=== PATIENT | male | born 1965 | race Caucasian/White ===

== ENCOUNTER → 2017-08-11 06:43 | Outpatient (CLI) | payer MEDICARE, SELFPAY ==
--- NOTE | 2017-08-11 06:47 | NM_ITS ---
CARDIOLITE SPECT MYOCARDIAL PERFUSION SCAN, REST AND STRESS: EXERCISE STRESS [facility] REVIEW QGS EF AND WALL MOTION EVALUATION: QPS - PERFUSION EVALUATION HISTORY: CAD, DM, Tobacco use DOSE: 10.31 mCi technetium 99m mibi intravenously at rest followed by 30.8 mCi technetium 99m mibi following the intravenous ministration of 0.4 mg of Lexiscan. Resting blood pressure is 147/77. Stress blood pressure 134/68. FINDINGS: Ejection fraction is calculated to be 62%. Uniform myocardial activity at both stress and rest gated images calculated ejection fraction of 62% with normal wall motion IMPRESSION: No scintigraphic evidence of Lexiscan-induced myocardial ischemia with normal ejection fraction and normal wall motion
--- NOTE | 2017-08-11 07:47 | HMH.ITSHM ---
ASA ATORVASTATIN CLONAZEPAM EFFIENT DRONABINOL PROCHLORPEAZINE MORPHINE OMEPRAZOLE PROAIR RELISTOR CLARENCE GASTON
== END ==
PROVIDERS: PCP Family Medicine; Visit Provider Internal Medicine
DX: I25.10 Atherosclerotic heart disease of native coronary artery without angina pectoris (principal); E78.5 Hyperlipidemia, unspecified; I77.9 Disorder of arteries and arterioles, unspecified; F17.200 Nicotine dependence, unspecified, uncomplicated; Z95.5 Presence of coronary angioplasty implant and graft
CPT/HCPCS: 78452; 93017; A9502; J2785

== ENCOUNTER → 2018-08-17 10:01 | Outpatient (CLI) | payer MEDICARE, SELFPAY ==
--- NOTE | 2018-08-17 10:06 | US_ITS ---
US Arterial Ankle Brachial Ind History: ITS.REASON: Skin Changes, PVD current smoker, bilateral claudication ORDERING PHYSICIAN: Miranda Gay DPM PATIENT AGE: 53 years TECHNIQUE: Segmental pressures obtained of both right and left leg. These are compared to brachial blood pressure to yield index at each level sampled including summary DANYELLE. The data sheets from the procedure are available in PACS FINDINGS Rest study only performed today No prior studies available for comparison. Blood pressures reported are in millimeters mercury. RIGHT LEG DANYELLE = 1.1. RIGHT LEG TBI=0.8 Brachial BP: 134 Thigh BP: 149 Calf BP: 135 Ankle PT: 151 Ankle DP : 139 Digit =100 LEFT LEG DANYELLE = 0.7 LEFT LEG TBI= 0.4 Brachial BPD: 127 Thigh BP: 131 Calf BP: 94 Ankle PT:91 Ankle DP: 91 Digit = 51 Pulses and waveforms: Diminished waveforms on the left with diminished pulses bilaterally IMPRESSION: 1. The right DANYELLE is within normal limits. 2. The left DANYELLE is low suggesting moderate peripheral vascular disease
== END ==
PROVIDERS: PCP Family Medicine; Visit Provider Podiatrist
DX: R09.89 Other specified symptoms and signs involving the circulatory and respiratory systems (principal)
CPT/HCPCS: 93922

== ENCOUNTER → 2019-03-14 06:42 | Outpatient (CLI) | payer MEDICARE, SELFPAY ==
--- NOTE | 2019-03-14 06:45 | CA_ITS ---
APPROVED REPORT Exam: Pharmacologic Technologist: grabiel horn, Ht: 6 ft 2 in Wt: 180 lbs BSA: 2.08 m2 HR: 83 bpm BP: 109/75 mmHg Medical History Medications: ClonAZEPAM,,,,, INSULIN,,,,, Dronabinol,,,,, Prochlorpeazine,,,,, RIvaROXABAN,,,,, Allergies: No known drug allergies Cardiac Risk Factors: Diabetes (insulin), Smoking Stress Test Details Test: LEXISCAN HR Resting HR: 84 bpm Max Heart Rate (APMHR): 168 bpm Max HR Achieved: 91 bpm Target HR (85% APMHR): 142 bpm % of APMHR: 54 Recovery HR: 87 bpm BP Resting BP: 109/75 mmHg Max BP: 122/73 mmHg Recovery BP: 117.0/71.0 mmHg ECG Resting ECG: Sinus Rhythm Clinical Exercise duration: 1 min Highest Stage Achieved: Stress ECG Conclusion Lexiscan completed. No complaints during infusion or recovery. No CP or SOB. NO arrhythmia or ectopy. Less than 1.5mm ST Depression.Images to follow. Test Summary REST 01:42 . . 84 . 109/ 75 . . Stage 1 01:00 . . 88 . . . . Stage 2 01:00 . . 91 . 101/ 65 . . Stage 3 01:00 . . 90 . 106/ 71 . . Stage 4 00:51 . . 89 . 114/ 70 . Stop exercise at 03:51 RECOVERY 01:00 . . 87 . 117/ 71 . . RECOVERY 02:00 . . 85 . 117/ 71 . . RECOVERY 03:00 . . 84 . 120/ 73 . . RECOVERY 04:00 . . 84 . 122/ 73 . . RECOVERY 04:06 . . 83 . 122/ 73 . . Electronically signed by : Gurpreet Kang, 03/15/2019 05:35:41
--- NOTE | 2019-03-14 06:45 | CA_ITS ---
APPROVED REPORT EXAM: Comprehensive 2D, Doppler, and color-flow [employer] Software Consultant: Theresa Marquez RT(R) Ht: 6 ft 2 in Wt: 176lbs BSA: 2.06 BP: 107/70 mmHg Indications: smoker, HTN, Diabetes, Hyperlipidemia 2D Dimensions IVSd 0.90 cm M: 0.6-1.2 LVEF (Visual) 36.70 % PWd 1.10 cm M: 0.6 - 1.2 LVDd 3.50 cm M: 4.2 - 5.9 LVDs 2.90 cm M: 2.5 - 4.0 LV Diastology E/A Ratio 0.7 MED E' 10.10 (< 7 cm/sec) E'/MED E' Ratio 6.00 (>14) LAT E' 9.65 (<10 cm/sec) E/LAT E' Ratio 6.20 (>14) Mitral Valve MV E Max Luke. 60.20 (40-130 cm/s) MV A Velocity 89.30 (40-130 cm/s) E/A Ratio 0.70 Left Ventricle Left atrium is mildly enlarged, left ventricle is normal size, mild concentric left ventricular hypertrophy, visually estimated ejection fraction 55% with no regional wall motion abnormalities grade 1 diastolic dysfunction seen without tissue Doppler evidence of raise left atrial pressure. Right Ventricle Right atrium and right ventricular mildly enlarged with normal contractility. Aortic Valve Aortic valve is not well visualized. However Doppler is not suggestive of aortic stenosis or aortic insufficiency. Mitral Valve Mitral valve is grossly normal, there is mild mitral regurgitation. Tricuspid Valve Tricuspid valve is grossly normal, there is mild tricuspid regurgitation. Pulmonic Valve Pulmonic valve is poorly visualized. Great Vessels Aortic root is normal size. Pericardium No significant pericardial effusion noted. Conclusion 1. Mildly enlarged left atrium, normal left ventricular size, mild concentric left ventricular hypertrophy, visually estimated ejection fraction 55% with no regional wall motion abnormality, grade 1 diastolic dysfunction seen without tissue Doppler evidence of raise left atrial pressure. 2. Mildly enlarged right ventricle with normal contractility. 3. Mild mitral and tricuspid regurgitation. 4. No significant pericardial effusion noted. Electronically signed by : Gurpreet Kang, 03/15/2019 06:20:12
--- NOTE | 2019-03-14 06:48 | NM_ITS ---
APPROVED REPORT Exam: Nuclear Stress Test Indication: CAD Patient Location: Outpatient Stress Tech: Nelsy [place] CT Tech:NORBERTO Grijalva RT(R)(N) Ht: 6 ft 2 in Wt: 180 lbs HR: 83 bpm BP: 109/75 mmHg BSA: 2.08 m2 BMI: 23.1 History: CAD Procedure: Patient received a 0.4 mg of intravenous Lexiscan, resting heart rate 83 bpm, resting blood pressure 109/75 mmHg, with Lexiscan maximum heart rate achived was 91 bpm which is Less than 85 % of the maximum predicted heart rate and blood pressure was 101/65 mmHg. With Lexiscan, patient denied any complaint of chest pain. Electrocardiogram Resting electrocardiogram showed sinus rhythm, with Lexiscan there is less than 1.[address] segment depression noted from the baseline EKG. The EKG portion of the Lexiscan Myoview is nondiagnostic. Cardiac Stress and Resting SPECT Images: Cardiac Stress and Resting SPECT images were obtained using technetium 99m Myoview 30.2 mCi stress and 10.65 mCi at rest. Gated SPECT with analysis of segmental wall motion and calculation of the ejection fraction also done. Cardiac stress and resting SPECT images show uniform myocardial activity without segmental perfusion abnormality, computer derived ejection fraction is over 65% with no regional wall motion abnormality, right ventricle is normal size and contractility. Conclusion: 1. The EKG portion of the Lexiscan Myoview is nondiagnostic. 2. No scintigraphic evidence of reversible ischemia seen, computer derived ejection fraction is over 65% with no regional wall motion abnormality, right ventricle is normal size and contractility. 3. Normal Lexiscan Myoview study. Electronically signed by : Gurpreet Kang, 03/15/2019 05:37:44
--- NOTE | 2019-03-14 10:42 | HMH.ITSHM ---
Current Home Medications as stated by this patient Douglas Orta III or indirect sales representative. [] atorvastatin clonazepam omprazole dronabinol asa prochlorperazine
== END ==
PROVIDERS: PCP Family Medicine; Visit Provider Urology
DX: E10.8 Type 1 diabetes mellitus with unspecified complications (principal); E78.2 Mixed hyperlipidemia; F17.200 Nicotine dependence, unspecified, uncomplicated; I11.9 Hypertensive heart disease without heart failure; I25.10 Atherosclerotic heart disease of native coronary artery without angina pectoris; I77.9 Disorder of arteries and arterioles, unspecified; Z95.5 Presence of coronary angioplasty implant and graft
CPT/HCPCS: 78452; 93017; 93306; A9502; J2785

== ENCOUNTER → 2019-03-29 14:33 | Outpatient (CLI) | payer MEDICARE, SELFPAY ==
[2019-03-29 16:21] LABS: Alanine Aminotransferase 16 U/L (12-78); Albumin Level 3.2 gm/dL (3.4-5.0); Alkaline Phosphatase 136 U/L (46-116); Aspartate Amino Transferase 14 U/L (15-37); Bilirubin,Direct 0.1 mg/dL (0.0-0.2); Bilirubin,Indirect 0.4 mg/dL (0.0-0.9); Bilirubin,Total 0.5 mg/dL (0.2-1.0); Cholesterol 140 mg/dL (140-200); HDL Cholesterol 47 mg/dL (27-67); LDL Cholesterol 74 mg/dL (0-130); Triglycerides 95 mg/dL (30-200); VLDL Cholesterol 19 mg/dL (0-40)
== END ==
PROVIDERS: Visit Provider Urology
DX: I11.9 Hypertensive heart disease without heart failure (principal); I25.10 Atherosclerotic heart disease of native coronary artery without angina pectoris; I77.9 Disorder of arteries and arterioles, unspecified
CPT/HCPCS: 36415; 80061; 80076

== ENCOUNTER 2019-10-17 16:03 | Emergency (ER) | payer MEDICARE, SELFPAY ==
[2019-10-17 16:25] VITALS: BP 120/66; PULSE 94; RESP 20; TEMP 36.8; O2SAT 98; BMI 22.4
--- NOTE | 2019-10-17 16:30 | XR_ITS ---
PROCEDURE: XR HAND LT MIN 3V CLINICAL INDICATION: FALL Posttraumatic pain COMPARISON: No exams were available for comparison FINDINGS: No fracture or dislocation. No lytic or blastic change. There is normal mineralization. There is flexion deformity of the PIP joint of the 5th finger. There is generalized vascular calcification and there appears to be an old fracture the distal aspect of the Other findings:None. IMPRESSION: No acute findings. Dictated by: Jesus Mccain MD 10/17/2019 17:52 Jesus Mccain MD in [place] 10/17/2019 17:52
--- NOTE | 2019-10-17 16:31 | XR_ITS ---
PROCEDURE: XR KNEE LT 3V CLINICAL INDICATION: FALL Posttraumatic pain COMPARISON: CR [id number] KNEE-3 VIEWS-RT from 09/02/2015 FINDINGS: Osteoarthritic changes are present involving all 3 compartments. There is loose bony fragment in the inter spinous region/intercondylar region of the knee measures 2 3 1.4 cm. This is well-circumscribed and may represent either an old fracture or a loose intra-articular body. Suprapatellar effusion is noted. There is generalized vascular calcification. IMPRESSION: Osteoarthritis with knee joint effusion with prominent loose bodies versus old ununited fracture at the intercondylar/interspinous region Dictated by: Jesus Mccain MD 10/17/2019 17:51 Jesus Mccain MD in [place] 10/17/2019 17:51
--- NOTE | 2019-10-17 17:07 | HMH.EDUTC ---
[facility] Clinical Impression: Knee sprain Qualifiers: Encounter type: initial encounter Involved ligament of knee: unspecified ligament Laterality: left Qualified Code(s): S83.92XA - Sprain of unspecified site of left knee, initial encounter Disposition: Home, Self-Care Condition on Discharge: Good Instructions: How To Perform RICE (Rest, Ice, Compress, Elevate), How to Use a Knee Immobilizer Additional Instructions: *RICE, Rest the extremity, Ice 15-20 minutes 3-4 times daily, Compress- wear the rayo wrap as discussed as much as possible to help reduce swelling and pain, Elevate the extremity when at rest *Rayo wrap is for support and help control swelling, use it except in the shower. Be sure that is not to tight but not to loose either *Elevate when resting *Ibuprofen every 6-8 hours as needed for pain an inflammation. If need something more can take Tylenol in between doses of Ibuprofen to help Immediately follow up with your family doctor for new or worsening of symptoms, or no noticeable improvement over the next 3-5 days Use walker to ambulate Make sure to keep abrasions clean and apply over the counter Triple antibiotic ointment to abrasions Return if needed Follow up with Dr Ibarra if no improvement and for further evaluation of knee pain Follow up with Orthopedics if pain continues and no improvement Prescriptions: Walker [Walker, Standard] 1 each MISCELLANEOUS DIRECTED #1 each Prescription Printed Referrals: Romeo Ibarra MD [Primary Care Provider] - As needed Karoline Manjarrez MD [Physician] - As needed Time of Disposition: 17:55 Medical Decision Making - Dinesh Inquiry Pt receiving controlled substance: No Dinesh was queried for this patient: No Vital Signs: 10/17/19 16:25 Temperature 98.2 F Temperature Source Oral Pulse Rate [Left Brachial] 94 H Respiratory Rate 20 Blood Pressure [Left Arm] 120/66 Blood Pressure Mean [Left Arm] 84 Blood Pressure Source [Left Arm] Automatic Cuff Blood Pressure Position [Left Arm] Sitting 02 Sat by Pulse Oximetry 98 Oxygen Delivery Method Room Air Orders (Tests/Meds): ORDERS Category Date Time Status Hand XR left minimum 3 views [XR hand LT min 3V] Stat Exams 10/17/19 16:30 Taken - Radiology Data #1 Image(s): Knee Image Reviewed: Yes I reviewed the patient's radiology image w/the ED provider Preliminary Findings: No Fracture Seen Discussed with Dr Matt no acute fracture in left knee #2 Image(s): Hand Image Reviewed: Yes I reviewed the patient's radiology image Preliminary Findings: No Fracture Seen Prior surgery to left little finger no acute finding [facility] HPI - General Stated complaint: ao 0815 @ 1600 injury to L leg Time Seen by Provider: 10/17/19 16:35 Mode of Arrival: Ambulatory Source of Information: Patient Limitations: No Limitations Description of Symptoms (Recalled from Triage Doc. by RN): PATIENT C/O LEFT HAND AND LEG/KNEE PAIN AFTER FALLING THURSDAY. NO LOC, DID NOT HIT HEAD HEENT Symptoms (Recalled from RN notes): No Resp Symptoms (Recalled from RN notes): No Skin Symptoms (Recalled from RN notes): No MS Symptoms (Recalled from RN notes): Yes Functional Status (Recalled from RN notes): WNL - History of Present Illness Provider Complaint: Patient states that he lost his balance on Thursday and fell States that he has a small cut on his left little finger and has been having some pain and swelling along with scratches on his left knee and hurts when he tries to walk on it States that he did not hit his head and denies any LOC States that today knee was still hurting so they brought him in to get it checked States that finger and hand does not hurt but he had surgery on it about 10 yrs ago and noticed a small cut on it - Related Data Home Medications Medication Instructions Recorded Confirmed aspirin 81 mg tablet,delayed 81 mg PO DAILY tab 07/20/17 02/10/19 release atorvastatin 40 mg tablet 40 mg PO
[2019-10-17 17:55] VITALS: BP 120/66; PULSE 94; RESP 20; TEMP 36.8; O2SAT 98
== END 2019-10-17 17:58 | disposition home or self-care (01) ==
PROVIDERS: Emergency Provider Nurse Practitioner; PCP Family Medicine
DX: S83.92XA Sprain of unspecified site of left knee, initial encounter (principal); S60.417A Abrasion of left little finger, initial encounter; W01.10XA Fall on same level from slipping, tripping and stumbling with subsequent striking against unspecified object, initial encounter; Y92.019 Unspecified place in single-family (private) house as the place of occurrence of the external cause; Z79.899 Other long term (current) drug therapy; E11.9 Type 2 diabetes mellitus without complications; E78.5 Hyperlipidemia, unspecified; F17.210 Nicotine dependence, cigarettes, uncomplicated; Z88.5 Allergy status to narcotic agent
CPT/HCPCS: 29505; 73130; 73562; 99202